=== PATIENT | female | born 1990 | race African-American/Black ===

== ENCOUNTER 2019-02-10 07:28 | Emergency (ER) | payer BC ==
[~2019-02-10] VITALS: Ht 162.6 cm; Wt 86.2 kg
[2019-02-10 08:16] LABS: INFLUENZA A ANTIGEN Negative (Negative); INFLUENZA B ANTIGEN Negative (Negative)
[2019-02-10 09:14] VITALS: BP 142/81
== END 2019-02-10 09:13 | disposition home or self-care (01) ==
LOC: M.ERS 07:28
PROVIDERS: Family Medicine
DX: J06.9 Acute upper respiratory infection, unspecified (principal)